=== PATIENT | female | born 2000 | race African-American/Black ===

== ENCOUNTER 2019-05-31 05:10 | Emergency (ER) | payer OTHER, MEDICAID ==
--- NOTE | 2019-05-31 05:48 | ED ---
GI/ HPI - HPI Summary HPI Summary: Patient is a 18-year-old female who presents emergency department for vaginal pain and vaginal spotting 4 days. Patient also notes dysuria. Patient is a student at [employer]. Patient notes she had intercourse with a new sexual partner on Thursday and did not use protection. Patient notes she is on oral contraceptives and is compliant. Patient denies past medical history. Denies fever, chills, sore throat, cough, abdominal pain, vomiting. In severity. No current modifying factors. - History of Current Complaint Chief Complaint: EDVaginalBleeding Time Seen by Provider: 05/31/19 05:37 Stated Complaint: VAGINAL PAIN PER PT Hx Obtained From: Patient Pain Intensity: 7 - Allergy/Home Medications Allergies/Adverse Reactions: Allergies Allergy/AdvReac Type Severity Reaction Status Date / Time No Known Allergies Allergy Verified 05/31/19 05:19 PMH/Surg Hx/FS Hx/Imm Hx Previously Healthy: Yes Infectious Disease History: No Infectious Disease History: Denies: Traveled Outside the [place] in Last 30 Days - Family History Known Family History: Positive: Non-Contributory - Social History Occupation: Student Lives: Dormitory/Roommates Review of Systems Constitutional: Negative Negative: Fever, Chills ENT: Negative Cardiovascular: Negative Respiratory: Negative Gastrointestinal: Negative Negative: Abdominal Pain, Vomiting, Nausea Positive: dysuria, other - Vaginal pain and irregular bleeding. Skin: Negative Negative: Rash All Other Systems Reviewed And Are Negative: Yes Physical Exam Triage Information Reviewed: Yes Vital Signs On Initial Exam: Initial Vitals Temp Pulse Resp BP Pulse Ox 99.6 F 94 18 147/91 98 05/31/19 05:16 05/31/19 05:16 05/31/19 05:16 05/31/19 05:16 05/31/19 05:16 Vital Signs Reviewed: Yes Appearance: Positive: Well-Appearing - Pt. sitting on bed in NAD. Skin: Positive: Warm, Dry Head/Face: Positive: Normal Head/Face Inspection Eyes: Positive: Normal, EOMI ENT: Positive: Pharynx normal, TMs normal Neck: Positive: Supple Respiratory/Lung Sounds: Positive: Clear to Auscultation, Breath Sounds Present Cardiovascular: Positive: Normal, RRR Abdomen Description: Positive: Nontender, Soft Pelvic Exam: Positive: Other - Exam performed with pt.'s nurse in room, [place]. External genitalia unremarkable. Speculum exam reveals mucopurulent discharge from cervix with CMT. No lesions. Cultures obtained. Psychiatric: Positive: Affect/Mood Appropriate Diagnostics - Vital Signs Vital Signs Temp Pulse Resp BP Pulse Ox 05/31/19 05:16 99.6 F 94 18 147/91 98 - Laboratory Result Diagrams: 05/31/19 06:03 Lab Statement: Any lab studies that have been ordered have been reviewed, and results considered in the medical decision making process. GIGU Course/Dx - Course Course Of Treatment: Patient presenting with irregular vaginal bleeding and pelvic pain after unprotected intercourse. She is afebrile and well-appearing. Vaginal cultures pending. We'll treat for suspected PID with Rocephin and doxycycline. Advised patient to follow up with [facility] within 1 week for recheck. Advised to avoid sexual interaction until symptoms resolve. Will call if culture results are positive. Advised to always use protection. We'll return to the ER symptoms change or worsen. Patient understands and agrees with plan. - Diagnoses Differential Diagnoses - Female: , Pelvic Inflammatory Disease, STD, Urinary Tract Infection Provider Diagnoses: PID (acute pelvic inflammatory disease) Discharge ED - Sign-Out/Discharge Documenting (check all that apply): Patient Departure Patient Received Moderate/Deep Sedation with Procedure: No - Discharge Plan Condition: Good Disposition: HOME Prescriptions: DOXYcycline CAP(*) [DOXYcycline 100MG CAP(*)] 100 mg PO BID #28 cap Patient Education Materials: Pelvic Inflammatory Disease (ED) Forms: *School Release Referrals: [facility] [Outside] Additional Instructions: Schedule a follow up appointment with [facility] within one week Take antibiotic as directed to completion Avoid sexual activity until symptoms resolve Always use sexual protection such as condoms Will call if vaginal cultures are positive Tylenol or Motrin for pain as directed Return to ER for fever, abdominal pain, vomiting or if concerned - Billing Disposition and Condition Condition: GOOD Disposition: Home - Attestation Statements Provider Attestation: I was available for consultation for this patient. I did not evaluate the patient or participate in any medical decision making or disposition decisions unless I am specifically named in the chart as having consulted on the patient. If I have consulted on the patient, please see my own ED note on the patient encounter. Rocco Clements MD
[2019-05-31 06:11] LABS: ABS Basophils 0.1 10^3/ul (0-0.2); ABS Eosinophils 0.1 10^3/ul (0-0.6); ABS Lymphocytes 1.1 10^3/ul (1.0-4.8); ABS Monocytes 1.1 10^3/ul (0-0.8); ABS Neutrophils 5.1 10^3/ul (1.5-7.7); Eosinophil % 0.7 %; Hematocrit 36 % (35-47); Hemoglobin 11.6 g/dL (12.0-16.0); Lymphocyte % 14.6 %; Mean Corpuscular HGB Conc 32 g/dL (31-36); Mean Corpuscular Hemoglobin 25 pg (27-31); Mean Corpuscular Volume 76 fL (80-97); Mean Platelet Volume 8.5 fL (7.4-10.4); Platelet Count 264 10^3/uL (150-450); Red Blood Count 4.68 10^6 /uL (3.70-4.87); Red Cell Distribution Width 14 % (10-15); White Blood Count 7.5 10^3/uL (3.5-10.8)
[2019-05-31 06:40] LABS: Urine Appearance Clear; Urine Bacteria Absent (Absent); Urine Bilirubin Negative (Negative); Urine Blood 1+ (Negative); Urine Color Yellow; Urine Glucose Negative (Negative); Urine Ketones Negative (Negative); Urine Nitrite Negative (Negative); Urine Protein 1+(30 mg/dL) (Negative); Urine Red Blood Cell 3+(>10/hpf) (Absent); Urine Specific Gravity 1.034 (1.010-1.030); Urine Squamous Epithelial Cell Present (Absent); Urine Urobilinogen Negative (Negative); Urine White Blood Cell 3+(>20/hpf) (Absent)
[2019-05-31] MEDS ORDERED: Lidocaine 1% MPF ** 5 ML VIAL IM ONE (06:56)
[2019-05-31] MEDS ORDERED: cefTRIAXone VIAL(*) 250 MG VIAL IM ONE (06:56)
[2019-05-31] MEDS ORDERED: DOXYcycline CAP(*) 100 MG PO ONE (06:56)
[2019-05-31 07:26] VITALS: BP 135/82
[2019-05-31 13:37] LABS: Chlamydia trachomatis NAA Negative (Negative); Neisseria gonorrhoeae (GC) NAA Negative (Negative)
--- NOTE | 2019-06-01 16:01 | PN ---
Progress Note - Progress Note Date of Service: 05/31/19 Note: Vaginal culture positive for joseluis. Rx for clotrimazole and diflucan sent to pharmacy. Attempted to call pt. today at 1600 with no response. Message left to return call . Will send letter. <Varun Carter - Last Filed: 06/01/19 18:02> Attestation Statement Provider Attestation: I was available for consult. This patient was seen by the RITA. The patient was not presented to, seen by, or examined by me. -Dottie <Ursula Cormier - Last Filed: 06/02/19 12:38>
== END 2019-05-31 07:26 | disposition home or self-care (01) ==
LOC: ED 05:10
DX: N73.9 Female pelvic inflammatory disease, unspecified (principal)
CPT/HCPCS: 36415; 81003; 81015; 84702; 85025; 87086; 87480; 87491; 87510; 87591; 87661; 96372; 99282; A9270-GY; J0696